=== PATIENT | female | born 1990 | race African-American/Black ===

== ENCOUNTER 2018-03-14 14:50 | Inpatient (IN) | payer OTHER ==
[2018-03-14] MEDS: LACTATED RINGERS SOLUTION 1,000 ML/1,000 ML INFUS.BAG IV SCH ×2 (15:20→23:25)
--- NOTE | 2018-03-14 15:22 | HP ---
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 Weeks Gestation by Dates: 39.4 Infectious Disease: No: HIV, STD's Psych: No: Anxiety, Bipolar, Depression Endocrine: No: Diabetes Mellitus - Past Surgical History Past Surgical History: Yes: Hx Myomectomy: No Hx Transabdominal Cerclage: No - Smoking History Have you smoked in the past 12 months: No - Alcohol/Substance Use Hx Alcohol Use: No - Social History Usual Living Arrangement: Yes: With Spouse History of Recent Travel: No Home Medications - Allergies Allergies/Adverse Reactions: Allergies Allergy/AdvReac Type Severity Reaction Status Date / Time Penicillins Allergy Intermediate Hives Verified 03/14/18 15:16 - Home Medications Home Medications: Ambulatory Orders Ferrous Sulfate [Feosol] 325 mg PO DAILY 03/14/18 Vitamins (Sjr) - 1 tab PO DAILY 03/14/18 Review of Systems - Review of Systems Constitutional: reports: No Symptoms Eyes: reports: No Symptoms HENT: reports: No Symptoms Neck: reports: No Symptoms Cardiovascular: reports: No Symptoms Respiratory: reports: No Symptoms Gastrointestinal: reports: No Symptoms Genitourinary: reports: Other (leaking fluid, contractions) Breasts: reports: No Symptoms Reported Musculoskeletal: reports: No Symptoms Integumentary: reports: No Symptoms Neurological: reports: No Symptoms Endocrine: reports: No Symptoms Hematology/Lymphatic: reports: No Symptoms Psychiatric: reports: No Symptoms Physical Exam - Maternity Constitutional: Yes: Well Nourished, No Distress, Calm Eyes: Yes: Conjunctiva Clear, EOM Intact HENT: Yes: Atraumatic, Normocephalic Neck: Yes: Supple, Trachea Midline Cardiovascular: Yes: Regular Rate and Rhythm Lungs: Clear to auscultation - Abdominal Exam/OB Fundal Height: 39 Number of Fetuses: Single Presentation: Vertex Contractions: Yes Regularity: Regular Intensity: Strong Monitor Mode: External Heart Rate (range): 150 Category: I Accelerations: None Decelerations: None - Vaginal Exam/OB Vaginal Bleediing: No Amniotic Membrane Status: Ruptured Amniotic Fluid: Yes: Clear Presentation: Vertex/Position - Physical Exam Psychiatric: Yes: Alert, Oriented Hemorrhage Risk Assessment - Risk Factors Medium Risk Factors: Yes: Prior , uterine surgery,or multiple laparotomies High Risk Factors: Yes: None Risk Score: 1 Risk Level: Medium Risk Problem List - Problems (1) History of delivery Code(s): Z98.891 - HISTORY OF UTERINE SCAR FROM PREVIOUS SURGERY (2) Rupture of membranes with clear amniotic fluid Code(s): O42.019 - PRETRM TYRA ROM, ONSET LABOR W/N 24 HOURS OF RUPT, UNSP TRI (3) Active labor at term Code(s): SXM2446 - Assessment/Plan 27 y/o wtih SIUP at 39.4 weeks, labor, for TOLAC - AFVSS - FHTS cat 1 - for TOLAC, expectant management for now, continuous monitoring, epidural prn - GBS positive, to start vancomycin for ppx (pt PCN allergic and sensetivities to Erythro/clinda not done)
[2018-03-14 15:27] VITALS: BMI 35.9
[2018-03-14] MEDS ORDERED: TUBERCULIN PPD 5 TU/0.1ML SYRINGE (IN PATIENT USE ONLY) ID ONE (15:30)
[2018-03-14] MEDS ORDERED: VANCOMYCIN 1,000 MG in DEXTROSE 5%-WATER - 250 ML IVPB ONE (15:30)
[2018-03-14 15:43] LABS: BASO % 0.3 % (0-2.0); EOS % 0.5 % (0-4.5); HEMATOCRIT 31.5 % (32.4-45.2); HEMOGLOBIN 11.1 GM/dL (10.7-15.3); LYMPH % 10.9 % (8-40); MCH 32.5 pg (25.7-33.7); MCHC 35.3 g/dl (32.0-36.0); MEAN CELL VOLUME 92.1 fl (80-96); MEAN PLT VOLUME 7.9 fl (7.5-11.1); MONO % 5.7 % (3.8-10.2); NEUT % 82.6 % (42.8-82.8); PLATELET COUNT 217 K/MM3 (134-434); RBC 3.42 M/mm3 (3.60-5.2); RDW 13.4 % (11.6-15.6); WHITE BLOOD COUNT 9.1 K/mm3 (4.0-10.0)
[2018-03-14 15:57] LABS: INR 0.93 (0.82-1.09); PROTHROMBIN TIME (PATIENT) 10.5 SEC (9.7-13.0)
[2018-03-14 15:59] LABS: ACTIVATED PTT 25.5 SECONDS (26.9-34.4)
[2018-03-14 16:06] LABS: ANION GAP 9 (8-16); BLOOD UREA NITROGEN 7 mg/dL (7-18); CALCIUM 8.9 mg/dL (8.5-10.1); CHLORIDE 106 mmol/L (98-107); CO2 23 mmol/L (21-32); CREATININE 0.5 mg/dL (0.55-1.02); GLUCOSE,RANDOM 104 mg/dL (74-106); POTASSIUM 3.9 mmol/L (3.5-5.1); SODIUM 138 mmol/L (136-145)
--- NOTE | 2018-03-14 18:25 | PN ---
Ante-Partal Exam - Subjective Vital Signs: Vital Signs Temperature 98.3 F 03/14/18 18:00 Pulse Rate 93 H 03/14/18 18:00 Respiratory Rate 18 03/14/18 18:00 Blood Pressure 128/74 03/14/18 18:00 O2 Sat by Pulse Oximetry (%) Bleeding: No Headache: No Visual changes: No Right upper quadrant pain: No Pain (scale 1-10): 4 - Contractions Contractions: Yes Intensity: Mod/Strong - Exam during Labor Heart Rate: 150 Variability: Moderate Category: I Monitor Accelerations: Present Dilatation (cm): 6 Effacement (%): 70 Amniotic Membrane Status: Ruptured Amniotic Fluid: Clear Presentation: Vertex Station: -1 - Assessment/Plan Assessment/Plan: 27 y/o with SIUP at 39.4 weeks, TOLAC - FHTS cat 1 - TOLAC, for expectant management - R/B/A discussed regarding TOLAC vs. repeat c section, pt desires to continue with labor at this time - Vancomycin for GBS (PCN allergy) - continue current care
--- NOTE | 2018-03-14 20:52 | PN ---
Ante-Partal Exam - Subjective Subjective: Pt tolerating contractions Vital Signs: Vital Signs Temperature 98.7 F 03/14/18 20:00 Pulse Rate 83 03/14/18 20:00 Respiratory Rate 18 03/14/18 20:00 Blood Pressure 132/74 03/14/18 20:00 O2 Sat by Pulse Oximetry (%) Bleeding: No Headache: No Visual changes: No Right upper quadrant pain: No Pain (scale 1-10): 3 - Contractions Contractions: Yes Regularity: Regular Intensity: Mod/Strong - Exam during Labor Heart Rate: 150 Variability: Moderate Category: I Monitor Accelerations: Present Monitor Decelerations: None Exam: Vaginal Dilatation (cm): 5-6 Effacement (%): 70 Amniotic Membrane Status: Ruptured Amniotic Fluid: Clear Presentation: Vertex Station: -2 - Assessment/Plan Assessment/Plan: Discussed progress with patient No change in cervical dilation since admission, pt aware. Offered patient continuation of labor vs. proceeding with delivery, pt refused c section at this time. Risks/benefits/alternatives again discussed - pt aware of risk of uterine rupture and need for emergent in that case. Discussed case with in house laborist configuration management administrator who agrees to monitor patient. Will re examine PRN or in a.m. If no progress by morning pt will desire to proceed with delivery.
[2018-03-14] MEDS ORDERED: BUTORPHANOL TARTRATE 1 MG/ML VIAL IVPB ONE (20:56)
[2018-03-14] MEDS ORDERED: PROMETHAZINE HCL 25 MG/1 ML VIAL IVPUSH ONE (20:56)
[2018-03-14] MEDS ORDERED: PROMETHAZINE HCL 25 MG/1 ML VIAL ONE (21:22)
[2018-03-14] MEDS ORDERED: BUTORPHANOL TARTRATE 1 MG/ML VIAL ONE ×2 (21:22)
[2018-03-15] MEDS ORDERED: VANCOMYCIN 1 GM PREMIX - 1 GM/200 ML BAG IVPB ONE (03:40)
--- NOTE | 2018-03-15 08:37 | PN ---
Ante-Partal Exam - Subjective Subjective: Pt with no cervical change - still 5-6cm dilated. Vital Signs: Vital Signs Temperature 97.8 F 03/15/18 08:00 Pulse Rate 98 H 03/15/18 08:00 Respiratory Rate 18 03/15/18 08:00 Blood Pressure 100/65 03/15/18 08:00 O2 Sat by Pulse Oximetry (%) Bleeding: No Headache: No Visual changes: No Right upper quadrant pain: No - Contractions Contractions: Yes Regularity: Irregular Intensity: Moderate Monitor Mode: External - Exam during Labor Heart Rate: 155 Variability: Moderate Category: I Exam: Vaginal Dilatation (cm): 5-6 Effacement (%): 70 Amniotic Membrane Status: Ruptured Presentation: Vertex Station: -2 - Assessment/Plan Assessment/Plan: 27 y/o with SIUP at 39.5 weeks gestation Arrest of cervical dilation Discussed delivery with patient due to arrest of labor risks/benefits/alternatives to including expectant management/pitocin discussed in detail questions answered GBS positive, s/p 2 doses antibiotics for treatment (vancomycin due to PCN allergy) pt desires trial of pitocin - discussed again risk of uterine rupture and potential need for emergent delivery/hysterectomy - pt aware of risks If no progress on pitocin will proceed with delivery pt aware keep NPO
[2018-03-15] MEDS ORDERED: OXYTOCIN 20 UNITS in 0.9% NS 20 UNIT/1,000 ML INFUS.BAG IV ONE (08:54)
[2018-03-15] MEDS ORDERED: OXYTOCIN 30 UNITS in 0.9% NS 30 UNIT/500 ML INFUS.BAG IVPB SCH (09:00)
[2018-03-15] MEDS ORDERED: ELECTROLYTE-148 SOLN 1,000 ML IV SCH (09:30)
[2018-03-15] MEDS ORDERED: FENTANYL/BUPIVACAINE/NS/PF - PCEA - 50 ML DISP.SYRIN EP ONE ×2 (10:46→15:55)
[2018-03-15] MEDS ORDERED: BUPIVACAINE HCL/PF 0.25% (2.5MG/ML) 10 ML VIAL ONE (11:03)
[2018-03-15] MEDS: FENTANYL/BUPIVACAINE/NS/PF - PCEA - 50 ML DISP.SYRIN EP SCH (11:15)
[2018-03-15] MEDS ORDERED: NALOXONE HCL 0.4 MG/ML VIAL IVPUSH PRN (11:19)
--- NOTE | 2018-03-15 15:36 | PN ---
Ante-Partal Exam - Subjective Vital Signs: Vital Signs Temperature 97.9 F 03/15/18 15:00 Pulse Rate 84 03/15/18 15:00 Respiratory Rate 20 03/15/18 15:00 Blood Pressure 128/76 03/15/18 15:00 O2 Sat by Pulse Oximetry (%) 98 03/15/18 15:00 Bleeding: No Headache: No Visual changes: No Right upper quadrant pain: No Pain (scale 1-10): 3 - Contractions Contractions: Yes Regularity: Regular Intensity: Mod/Strong - Exam during Labor Heart Rate: 155 Variability: Moderate Category: I Monitor Decelerations: None Exam: Vaginal Amniotic Membrane Status: Ruptured Amniotic Fluid: Clear - Assessment/Plan Assessment/Plan: 27 y/o with SIUP at 39.5 weeks, labor TOLAC pt on pitocin no cervical change since admission discussed options with pt and she agrees with repeat section plan for c section - anesthesia and nursing aware
[2018-03-15] MEDS ORDERED: CITRIC ACID/SODIUM CITRATE 30 ML UNIT-DOSE CUP PO ONE ×2 (16:00→16:22)
[2018-03-15] MEDS ORDERED: METHYLERGONOVINE MALEATE 0.2 MG/1 ML AMP IM PRN (16:23)
[2018-03-15] MEDS ORDERED: oxyCODONE HCL 5 MG TABLET PO PRN ×2 (16:23)
[2018-03-15] MEDS ORDERED: IBUPROFEN 800 MG/8 ML IJ IVPB PRN (16:23)
[2018-03-15] MEDS ORDERED: OXYTOCIN 20 UNITS in 0.9% NS 20 UNIT/1,000 ML INFUS.BAG IV SCH (16:30)
[2018-03-15] MEDS ORDERED: LIDO 2%/EPI 1:200000 PRESRVFRE (20 ML SDVIAL) ONE (16:34)
[2018-03-15] MEDS ORDERED: CLINDAMYCIN PHOSPHATE 600 MG/4 ML VIAL ONE (16:43)
[2018-03-15] MEDS ORDERED: ONDANSETRON 4 MG/2 ML VIAL IVPUSH PRN (17:21)
[2018-03-15] MEDS ORDERED: morphine SULFATE/Preservative Free 0.5 MG/ML (1cc Syringe) EP ONE (17:30)
[2018-03-15] MEDS ORDERED: IBUPROFEN 800 MG/8 ML IJ IVPB ONE (18:58)
[2018-03-16] MEDS: IBUPROFEN 600 MG TABLET (FP) PO PRN ×3 (08:21→21:58)
[2018-03-16] MEDS: FERROUS SO4 325 MG TABLET (FP) PO SCH ×3 (08:21→17:44)
[2018-03-16] MEDS: ACETAMINOPHEN 325 MG TABLET (FP) PO PRN ×3 (08:22→21:59)
[2018-03-16] MEDS: SIMETHICONE 80 MG TAB.CHEW (FP) PO PRN ×2 (08:25→14:07)
[2018-03-16 09:28] LABS: BASO % 0.3 % (0-2.0); EOS % 0.5 % (0-4.5); HEMOGLOBIN 9.7 GM/dL (10.7-15.3); LYMPH % 6.8 % (8-40); MCH 33.2 pg (25.7-33.7); MEAN CELL VOLUME 92.1 fl (80-96); MEAN PLT VOLUME 7.9 fl (7.5-11.1); MONO % 6.6 % (3.8-10.2); NEUT % 85.8 % (42.8-82.8); PLATELET COUNT 172 K/MM3 (134-434); RBC 2.93 M/mm3 (3.60-5.2); RDW 13.3 % (11.6-15.6); WHITE BLOOD COUNT 9.1 K/mm3 (4.0-10.0)
--- NOTE | 2018-03-16 12:33 | OP ---
Operative Note - Note: Operative Date: 03/15/18 Pre-Operative Diagnosis: Arrest of dilation, failed TOLAC, GBS positive Operation: Repeat LTCS Findings: normal b/l tubes and ovaries Post-Operative Diagnosis: Same as Pre-op Surgeon: Joan Encinas Wafer Fab Operator: Wesley Anguiano Anesthesiologist/AIRPLANE GASTANK LINER ASSEMBLER: Herman Min Anesthesia: Epidural Specimens Removed: placenta, cord blood samples Estimated Blood Loss (mls): 600 Operative Report Dictated: Yes
--- NOTE | 2018-03-16 12:35 | PN ---
Post Progress Note - Subjective Subjective: Pt seen/evaluated and doing well. pain controlled, tolerating clear diet. Ambulating. no flatus yet. Denies CP/SOB/F/C/MARSHALL. VB minimal Type of Delivery: Repeat C/S Vital Signs: Vital Signs Temperature 98.3 F 03/16/18 08:58 Pulse Rate 89 03/16/18 08:58 Respiratory Rate 18 03/16/18 11:00 Blood Pressure 107/64 03/16/18 08:58 O2 Sat by Pulse Oximetry (%) 98 03/15/18 20:00 Uterus: Yes: Fundus Firm, Fundus @ umbilicus Incision: Yes: Dressing dry and intact Abdomen/GI: Yes: Abdomen soft, Tender (appropriate post surgical tenderness), Tolerating PO. No: Passing flatus Lochia, amount: Small Extremities: Yes: Calves non-tender Perineum: Yes: Intact Activity: Ambulating - Labs Labs: CBC WBC 9.1 K/mm3 (4.0-10.0) 03/16/18 08:00 RBC 2.93 M/mm3 (3.60-5.2) L 03/16/18 08:00 Hgb 9.7 GM/dL (10.7-15.3) L D 03/16/18 08:00 Hct 27.0 % (32.4-45.2) L 03/16/18 08:00 MCV 92.1 fl (80-96) 03/16/18 08:00 MCH 33.2 pg (25.7-33.7) 03/16/18 08:00 MCHC 36.0 g/dl (32.0-36.0) 03/16/18 08:00 RDW 13.3 % (11.6-15.6) 03/16/18 08:00 Plt Count 172 K/MM3 (134-434) D 03/16/18 08:00 MPV 7.9 fl (7.5-11.1) 03/16/18 08:00 Neutrophils % 85.8 % (42.8-82.8) H 03/16/18 08:00 Lymphocytes % 6.8 % (8-40) L D 03/16/18 08:00 Monocytes % 6.6 % (3.8-10.2) 03/16/18 08:00 Eosinophils % 0.5 % (0-4.5) 03/16/18 08:00 Basophils % 0.3 % (0-2.0) 03/16/18 08:00 Problem List - Problems (1) History of delivery Code(s): Z98.891 - HISTORY OF UTERINE SCAR FROM PREVIOUS SURGERY (2) Rupture of membranes with clear amniotic fluid Code(s): O42.019 - PRETRM TYRA ROM, ONSET LABOR W/N 24 HOURS OF RUPT, UNSP TRI (3) Active labor at term Code(s): XQP3880 - (4) delivery delivered Code(s): O82 - ENCOUNTER FOR DELIVERY WITHOUT INDICATION Assessment/Plan 27 y/o POD#1 s/p repeat delivery - AFVSS - Hgb 9.7, pt asymptomatic - encourage ambulation - advance diet as tolerated - PO pain meds - routine care
--- NOTE | 2018-03-16 13:49 | PN ---
Progress Note, Physician Chief Complaint: POD #1 s/p csection with duramorph (epidural) - Current Medication List Current Medications: Active Medications Acetaminophen (Tylenol -) 650 mg PO Q4H PRN PRN Reason: FEVER Last Admin: 03/16/18 08:22 Dose: 650 mg Bisacodyl (Dulcolax Suppository -) 10 mg RC PRN PRN PRN Reason: CONSTIPATION Diphenhydramine HCl (Benadryl Injection -) 25 mg IVPUSH Q4H PRN PRN Reason: Pruritis Fentanyl/Bupivacaine/Sodium Chlor (Bupivicaine 0.125%/Fentanyl 2mcg/Ml Pcea) 0 ml EP ASDIR [facility] PRN Reason: Protocol Last Admin: 03/15/18 11:15 Dose: 10 ml Ferrous Sulfate (Feosol -) 325 mg PO BIDWM [facility] Last Admin: 03/16/18 08:21 Dose: 325 mg Oxytocin/Sodium Chloride (Normal Saline+20 Units Oxytocin -) 20 unit in 1,000 mls @ 125 mls/hr [facility] Last Admin: 03/15/18 17:57 Dose: 125 mls/hr Ibuprofen (Motrin -) 600 mg PO Q4H PRN PRN Reason: PAIN LEVEL 1 - 3 Last Admin: 03/16/18 08:21 Dose: 600 mg Ibuprofen (Caldolor Injection -) 800 mg IVPB Q8H PRN PRN Reason: PAIN LEVEL 1 - 3 Last Admin: 03/15/18 19:00 Dose: 800 mg Methylergonovine Maleate (Methergine Injection -) 0.2 mg IM Q4H PRN PRN Reason: Excessive Bleeding (L&D) Naloxone HCl (Narcan -) 0.4 mg IVPUSH PRN PRN PRN Reason: Sedation Ondansetron HCl (Zofran Injection) 4 mg IVPUSH Q4H PRN PRN Reason: NAUSEA Oxycodone HCl (Roxicodone -) 5 mg PO Q4H PRN PRN Reason: PAIN LEVEL 4 - 6 Oxycodone HCl (Roxicodone -) 10 mg PO Q4H PRN PRN Reason: PAIN LEVEL 7 - 10 Simethicone (Mylicon -) 80 mg PO Q4H PRN PRN Reason: GAS Last Admin: 03/16/18 08:25 Dose: 80 mg - Objective Vital Signs: Vital Signs Temperature 98.3 F 03/16/18 08:58 Pulse Rate 89 03/16/18 08:58 Respiratory Rate 18 03/16/18 13:00 Blood Pressure 107/64 03/16/18 08:58 O2 Sat by Pulse Oximetry (%) 98 03/15/18 20:00 Labs: CBC, BMP 03/16/18 08:00 03/14/18 15:30 INR, PTT INR 0.93 (0.82-1.09) 03/14/18 15:30 Assessment/Plan Doing well after csection. No back pain, MARSHALL, pain well controlled.
[2018-03-16] MEDS ORDERED: BISACODYL 10 MG SUPP.RECT RC PRN (16:23)
--- NOTE | 2018-03-17 01:39 | OP ---
DATE OF OPERATION: 03/15/2018 PREOPERATIVE DIAGNOSIS: Intrauterine at 39 weeks, arrest of dilation, and failed trial of labor after delivery. POSTOPERATIVE DIAGNOSIS: Intrauterine at 39 weeks, arrest of dilation, and failed trial of labor after delivery. PROCEDURE: Repeat low transverse section. SURGEON: Joan Encinas DO DIRECTOR OF INSTITUTIONAL RESEARCH: SHRUTHI Comer ANESTHESIA: Epidural by Dr. Min. COMPLICATIONS: None. ESTIMATED BLOOD LOSS: 600 mL. SPECIMENS: Removed placenta and cord blood samples. COUNTS: Sponge, needle, and instrument counts were correct at the end of the procedure. DISPOSITION: Stable to PACU. BRIEF HISTORY AND OPERATION: Patient is a 27-year-old para 1 female who was admitted to Labor and Delivery on March 14, 2018 with complaints of rupture of membranes. The patient was noted to be approximately 5-6 cm dilated upon admission. She had a prior delivery and requested a trial of labor after the . The patient was admitted to Labor and Delivery for management expectantly. On the morning of March 15, 2018, the patient was still approximately 5-6 cm dilated and the plan was to start Pitocin to attempt to augment labor at this time. On the evening of March 15, 2018, approximately 4:30 p.m. the patient was examined and noted to be still without cervical change. At this point, it was decided to proceed with a repeat delivery. The patient was taken back to the operating room. She was placed in the dorsal supine position on the operating room table. The epidural, which was placed earlier, was bolused for pain control. After a hard timeout was performed, a Pfannenstiel skin incision was created in the skin with a scalpel and carried to the underlying layer of rectus fascia with the scalpel as well as the Bovie. The fascia was incised on either side of the midline with the Bovie and the fascial incision was extended in the superolateral direction. The fascia was tented upwards and dissected off of the underlying layer of rectus muscle. The musculature was identified in the midline and the muscles were laterally. The peritoneum was entered bluntly and dissected to allow for adequate room for delivery. A bladder blade was then inserted. A transverse incision in the lower uterine segment was completed with a scalpel and was extended in the superolateral direction bluntly. The fetus was then delivered from the right occiput transverse position without difficulty. Bilateral shoulders delivered with ease along with the remainder of the . The cord was clamped twice and cut in between. The was taken over to the warmer to be assessed by neonatology staff. The placenta was then delivered with a 3-vessel cord. It was intact. The uterus was exteriorized from the abdomen, inspected, and cleared of all amniotic membrane and debris with a dry lap sponge. Bilateral tubes and ovaries were noted to be within normal limits. The uterus was placed back in the abdomen. Bilateral gutters were inspected and cleared of all debris. Hysterotomy was reapproximated in a double layered closure, first with 1 Vicryl suture in a running locked fashion and second with a 0 Biosyn suture in a running locked fashion. Excellent hemostasis was achieved at the end of the repair. The peritoneum was then reapproximated in a running fashion using 2-0 chromic suture. The musculature was reapproximated with 2 interrupted sutures. The fascia was then reapproximated in a running fashion with 1 Vicryl suture. The subcutaneous tissues were irrigated and reapproximated using 0 Biosyn suture in a running fashion. The skin was reapproximated in a subcuticular fashion. Steri-Strips were applied. The patient tolerated the procedure well and was sent to recovery in stable condition after the procedure. JOAN ENCINAS DO /[id number]
[2018-03-17] MEDS: IBUPROFEN 600 MG TABLET (FP) PO PRN ×4 (02:48→21:28)
[2018-03-17] MEDS: ACETAMINOPHEN 325 MG TABLET (FP) PO PRN ×3 (02:49→21:29)
--- NOTE | 2018-03-17 07:14 | PN ---
Post Progress Note - Subjective Subjective: Pt feeling well, having some increase in frequency of BMs but denies abdominal pain, bloody stools or nausea or fevers. No CP/SOB /F/C/MARSHALL. Feels well. Type of Delivery: Repeat C/S Vital Signs: Vital Signs Temperature 98.0 F 03/16/18 22:00 Pulse Rate 91 H 03/16/18 22:00 Respiratory Rate 20 03/16/18 22:00 Blood Pressure 121/61 03/16/18 22:00 O2 Sat by Pulse Oximetry (%) 98 03/15/18 20:00 Uterus: Yes: Fundus Firm Abdomen/GI: Yes: Abdomen soft Lochia, amount: Small Extremities: Yes: Edema Perineum: Yes: Intact Activity: Ambulating - Labs Labs: CBC WBC 9.1 K/mm3 (4.0-10.0) 03/16/18 08:00 RBC 2.93 M/mm3 (3.60-5.2) L 03/16/18 08:00 Hgb 9.7 GM/dL (10.7-15.3) L D 03/16/18 08:00 Hct 27.0 % (32.4-45.2) L 03/16/18 08:00 MCV 92.1 fl (80-96) 03/16/18 08:00 MCH 33.2 pg (25.7-33.7) 03/16/18 08:00 MCHC 36.0 g/dl (32.0-36.0) 03/16/18 08:00 RDW 13.3 % (11.6-15.6) 03/16/18 08:00 Plt Count 172 K/MM3 (134-434) D 03/16/18 08:00 MPV 7.9 fl (7.5-11.1) 03/16/18 08:00 Neutrophils % 85.8 % (42.8-82.8) H 03/16/18 08:00 Lymphocytes % 6.8 % (8-40) L D 03/16/18 08:00 Monocytes % 6.6 % (3.8-10.2) 03/16/18 08:00 Eosinophils % 0.5 % (0-4.5) 03/16/18 08:00 Basophils % 0.3 % (0-2.0) 03/16/18 08:00 Problem List - Problems (1) History of delivery Code(s): Z98.891 - HISTORY OF UTERINE SCAR FROM PREVIOUS SURGERY (2) Rupture of membranes with clear amniotic fluid Code(s): O42.019 - PRETRM TYRA ROM, ONSET LABOR W/N 24 HOURS OF RUPT, UNSP TRI (3) Active labor at term Code(s): UEK4449 - (4) delivery delivered Code(s): O82 - ENCOUNTER FOR DELIVERY WITHOUT INDICATION Assessment/Plan 27 y/o POD#2 s/p repeat delivery - AFVSS - Hgb 9.7, pt asymptomatic - encourage ambulation - regular diet - PO pain meds - routine care
[2018-03-17] MEDS: FENTANYL/BUPIVACAINE/NS/PF - PCEA - 50 ML DISP.SYRIN EP SCH (07:55)
[2018-03-17] MEDS: FERROUS SO4 325 MG TABLET (FP) PO SCH ×2 (07:59→17:08)
[2018-03-17] MEDS: SIMETHICONE 80 MG TAB.CHEW (FP) PO PRN ×2 (08:06→21:28)
[2018-03-18] MEDS: FERROUS SO4 325 MG TABLET (FP) PO SCH (07:19)
[2018-03-18] MEDS: ACETAMINOPHEN 325 MG TABLET (FP) PO PRN (07:20)
[2018-03-18] MEDS: IBUPROFEN 600 MG TABLET (FP) PO PRN (07:20)
[2018-03-18 08:02] VITALS: BP 116/75; PULSE 82; TEMP 97.8
[2018-03-18 08:08] LABS: BASO % 0.5 % (0-2.0); EOS % 3.1 % (0-4.5); HEMATOCRIT 25.7 % (32.4-45.2); HEMOGLOBIN 8.8 GM/dL (10.7-15.3); LYMPH % 18.4 % (8-40); MCH 31.9 pg (25.7-33.7); MCHC 34.3 g/dl (32.0-36.0); MEAN CELL VOLUME 93.2 fl (80-96); MEAN PLT VOLUME 7.7 fl (7.5-11.1); MONO % 6.8 % (3.8-10.2); NEUT % 71.2 % (42.8-82.8); PLATELET COUNT 197 K/MM3 (134-434); RBC 2.75 M/mm3 (3.60-5.2); RDW 13.5 % (11.6-15.6); WHITE BLOOD COUNT 7.8 K/mm3 (4.0-10.0)
--- NOTE | 2018-03-18 08:55 | DS ---
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 Vital Signs: Vital Signs Temperature 97.8 F 03/18/18 08:02 Pulse Rate 82 03/18/18 08:02 Respiratory Rate 20 03/18/18 08:02 Blood Pressure 116/75 03/18/18 08:02 O2 Sat by Pulse Oximetry (%) 98 03/15/18 20:00 Constitutional: Yes: Well Nourished, No Distress, Calm Eyes: Yes: Conjunctiva Clear, EOM Intact HENT: Yes: Atraumatic, Normocephalic Neck: Yes: Supple, Trachea Midline Cardiovascular: Yes: Regular Rate and Rhythm Respiratory: Yes: Regular, CTA Bilaterally Gastrointestinal: Yes: Normal Bowel Sounds, Soft ....Post : Yes: Uterus firm, Uterus non-tender Extremities: Yes: WNL Wound/Incision: Yes: Clean/Dry, Well Approximated, Steri Strips Psychiatric: Yes: Alert, Oriented Labs: CBC, BMP 03/18/18 06:50 03/14/18 15:30 Delivery - Delivery Section: Repeat, Low Flap Transverse Type of Anesthesia: Epidural, Spinal Episiotomy/Laceration: None EBL (cc): 600 Delivery, Single - Stages of Labor Date 1st Stage Initiatied: 03/14/18 Time 1st Stage Initiated: 14:40 Date of Delivery: 03/15/18 Time of Delivery: 16:56 Time Placenta Delivered: 16:57 - Condition of Infant Crop Setting Out Machine Operator/Wildlife Control Agent Present: Yes Name: Jaycee Vicente Gender: Male Weight: 8 lb 2 oz Position: Right, OT Total Hours ROM (Hrs/Mins): 26hrs 17min - 1 Minute Total Score: 9 5 Minutes Total Score: 9 - [place] Feeding Plan Initial Plan: Exclusive throughout hospitalization Discharge Summary Reason For Visit: ADMIT LABOR Current Active Problems Active labor at term (Acute) delivery delivered (Acute) History of delivery (Acute) Rupture of membranes with clear amniotic fluid (Acute) Procedures: Principal: Repeat delivery. Hospital Course: Pt admitted in labor, proceeded with a repeat delivery due to failure to progress. Pt had uncomplicated post op/post course and was discharged home on post op day 3. Condition: Good - Instructions Diet, Activity, Other Instructions: Physical activity Resume your normal everyday activity as tolerated no heavy lifting or exercise until seen by your surgeon. You may walk unlimited amounts and climb stairs. You may resume driving the car when you feel safe and comfortable behind the wheel. No sexual activity as instructed. Wound care If there are tapes on the skin leave them in place. They will peel off in the next 7 to 10 days. Do Not Peel them off. You may shower the day after surgery. If there are tapes present on the skin, you may shower over them. Diet There are no dietary restrictions. Eat healthy, high-fiber foods. Drink 6 to 8 glasses of liquid each day. This will assist in keeping your bowels regular. Pain management You may take Tylenol or Ibuprofen (for example, Motrin, Advil etc.) for pain. IF any prescription medication is ordered should be taken as prescribed for moderate to severe pain. Call MD for any of the following: Severe pain not relieved by medication Fever of 101 or higher Excessive bleeding or drainage on dressing Inability to urinate Disposition: HOME - Home Medications Comprehensive Discharge Medication List: Ambulatory Orders Ferrous Sulfate [Feosol] 325 mg PO DAILY 03/14/18 Vitamins (Sjr) - 1 tab PO DAILY 03/14/18 Ibuprofen [Motrin -] 600 mg PO QID PRN #28 tablet 03/18/18 Oxycodone HCl/Acetaminophen [Percocet 5-325 mg Tablet -] 1 tab PO Q4H #30 tablet MDD 6 03/18/18
--- NOTE | 2018-03-28 12:32 | PATH ---
Surgical Pathology Report Patient Name: SADIE ESPINO [facility]. Rec. 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 Specimen(s) Received PLACENTA Clinical History , 39.5 weeks previous Final Diagnosis PLACENTA: THIRD TRIMESTER PLACENTA WITH FOCAL ACUTE CHORIOAMNIONITIS. TRIVASCULAR CORD. Electronically Signed Kena Barnett M.D. Gross Description The specimen is received fresh labeled placenta and is a 454 gram, 16.0 x 14.0 x 2.8 cm. placenta with attached membranes and umbilical cord. The attached membranes are cuellar, translucent with focal opacities and insert marginally. The umbilical cord measures 25 cm. in length and averages 1 cm. in diameter. The cord inserts eccentrically, 4 cm. to the nearest margin. No true knots or strictures are identified. Cut surface of the umbilical cord reveals 3 vessels. The surface is cole-blue with minimal fibrin deposition and appropriate caliber vessels. The maternal surface is red-brown with focal defects. Sectioning reveals red-brown, spongy parenchyma. No lesions are identified. Processing Assistant sections are submitted in three cassettes as follows: 1- membrane rolls and umbilical cord; 2-3- full thickness sections of placenta. /03/24/2018 [facility]03/24/2018
== END 2018-03-18 12:13 | disposition home or self-care (01) | DRG 766 ==
LOC: JLDR 14:50 → J3W 03-15 19:30
PROVIDERS: ADMIT Obstetrics & Gynecology; ATTEND Obstetrics & Gynecology
PROC: 10D00Z1 Extraction of Products of Conception, Low, Open Approach (ICD-10-PCS; principal; 2018-03-14)
DX: O34.211 Maternal care for low transverse scar from previous cesarean delivery (principal); O62.1 Secondary uterine inertia; O61.0 Failed medical induction of labor; O42.02 Full-term premature rupture of membranes, onset of labor within 24 hours of rupture; O99.824 Streptococcus B carrier state complicating childbirth; Z3A.39 39 weeks gestation of pregnancy; Z37.0 Single live birth
CPT/HCPCS: 36415; 80048; 85025; 85610; 85730; 86593; 86850; 86900; 86901; 88307-TC